=== PATIENT | female | born 1940 | race Caucasian/White ===

== ENCOUNTER 2020-06-13 16:38 | Inpatient (IN) ==
[2020-06-13] MEDS ORDERED: NS 0.9% 1000 ml BAG 1,000 ML IV ONE (18:49)
[2020-06-13 18:56] LABS: ABS Basophils 0.1 10^3/ul (0-0.2); ABS Eosinophils 0.1 10^3/ul (0-0.6); ABS Lymphocytes 0.9 10^3/ul (1.0-4.8); ABS Monocytes 0.6 10^3/ul (0-0.8); ABS Neutrophils 6.4 10^3/ul (1.5-7.7); Hematocrit 40 % (35-47); Hemoglobin 13.5 g/dL (12.0-16.0); Lymphocyte % 11.7 %; Mean Corpuscular HGB Conc 34 g/dL (31-36); Mean Corpuscular Hemoglobin 32 pg (27-31); Mean Corpuscular Volume 94 fL (80-97); Mean Platelet Volume 8.5 fL (7.4-10.4); Platelet Count 298 10^3/uL (150-450); Red Blood Count 4.22 10^6 /uL (3.70-4.87); Red Cell Distribution Width 12 % (10-15)
[2020-06-13] MEDS ORDERED: Diltiazem IV push/loading dose 5 MG/ML 5 ML vial (25 mg) IV SLOW PU ONE (19:08)
[2020-06-13 19:15] LABS: Albumin 4.2 g/dL (3.2-5.2); Albumin/Globulin Ratio 1.1 (1-3); BUN/Creatinine Ratio 15.8 (8-20); C Reactive Protein 126.54 mg/L (<8.01); Calcium 9.6 mg/dL (8.6-10.3); EGFR African American 68.8 (>60); EGFR Non-African American 56.9 (>60); Globulin 3.7 g/dL (2-4); Potassium 4.3 mmol/L (3.5-5.0); Total Bilirubin 0.4 mg/dL (0.2-1.0); Total Protein 7.9 g/dL (6.4-8.9)
[2020-06-13] MEDS ORDERED: Azithromycin IV 500 MG in NS 0.9% 250 ml 250 ML IVPB ONE (19:48)
[2020-06-13] MEDS ORDERED: cefTRIAXone 1 gm/50 mL NS BAG 1 GM/50 ML BAG IV ONE (19:48)
[2020-06-13] MEDS ORDERED: NS 0.9% 250 ml 250 ML ONE (20:07)
[2020-06-13] MEDS ORDERED: Vancomycin 1,500 MG in NS 0.9% 250 ml 250 ML IVPB ONE (20:15)
[2020-06-13 20:21] LABS: Magnesium 2.5 mg/dL (1.9-2.7)
[2020-06-13] MEDS ORDERED: Iodixanol (CONTRAST) 320 MG/ML 100 ML SDV IV ONE (21:18)
[2020-06-13] MEDS ORDERED: Enoxaparin 80 MG/0.8 ML SYR SUBCUT SCH (23:00)
[2020-06-14 04:38] LABS: ABS Eosinophils 0.1 10^3/ul (0-0.6); ABS Lymphocytes 0.9 10^3/ul (1.0-4.8); ABS Monocytes 0.5 10^3/ul (0-0.8); ABS Neutrophils 5.5 10^3/ul (1.5-7.7); Eosinophil % 1.1 %; Hematocrit 35 % (35-47); Hemoglobin 11.9 g/dL (12.0-16.0); Lymphocyte % 12.5 %; Mean Corpuscular HGB Conc 34 g/dL (31-36); Mean Corpuscular Hemoglobin 32 pg (27-31); Mean Corpuscular Volume 95 fL (80-97); Mean Platelet Volume 9.2 fL (7.4-10.4); Platelet Count 260 10^3/uL (150-450); Red Cell Distribution Width 13 % (10-15); White Blood Count 6.9 10^3/uL (3.5-10.8)
[2020-06-14 04:49] LABS: BUN/Creatinine Ratio 17.1 (8-20); Calcium 8.7 mg/dL (8.6-10.3); EGFR African American 89.1 (>60); EGFR Non-African American 73.6 (>60); Potassium 4.2 mmol/L (3.5-5.0)
[2020-06-14 16:40] LABS: Ferritin 357.9 ng/mL (11-307)
[2020-06-15 08:28] LABS: ABS Basophils 0.1 10^3/ul (0-0.2); ABS Eosinophils 0.1 10^3/ul (0-0.6); ABS Lymphocytes 0.9 10^3/ul (1.0-4.8); ABS Monocytes 0.5 10^3/ul (0-0.8); ABS Neutrophils 6.8 10^3/ul (1.5-7.7); Hematocrit 38 % (35-47); Hemoglobin 12.7 g/dL (12.0-16.0); Lymphocyte % 10.2 %; Mean Corpuscular HGB Conc 34 g/dL (31-36); Mean Corpuscular Hemoglobin 32 pg (27-31); Mean Corpuscular Volume 94 fL (80-97); Platelet Count 308 10^3/uL (150-450); Red Blood Count 4.01 10^6 /uL (3.70-4.87); Red Cell Distribution Width 12 % (10-15); White Blood Count 8.3 10^3/uL (3.5-10.8)
[2020-06-15 08:46] LABS: Albumin 3.8 g/dL (3.2-5.2); Albumin/Globulin Ratio 1.2 (1-3); BUN/Creatinine Ratio 19.5 (8-20); EGFR African American 81.6 (>60); EGFR Non-African American 67.4 (>60); Globulin 3.2 g/dL (2-4); Potassium 4.3 mmol/L (3.5-5.0); Total Bilirubin 0.4 mg/dL (0.2-1.0)
[2020-06-15 08:50] LABS: INR 1.13 (0.82-1.09)
[2020-06-15 14:15] LABS: Body Fluid Source Pleural Fluid
[2020-06-15 14:38] LABS: EGFR African American 61.3 (>60); EGFR Non-African American 50.7 (>60)
[2020-06-15 15:55] LABS: Body Fluid Mono 34 %
[2020-06-16 09:34] LABS: Hematocrit 38 % (35-47); Hemoglobin 12.6 g/dL (12.0-16.0); Mean Corpuscular HGB Conc 33 g/dL (31-36); Mean Corpuscular Hemoglobin 31 pg (27-31); Mean Corpuscular Volume 95 fL (80-97); Mean Platelet Volume 8.9 fL (7.4-10.4); Platelet Count 318 10^3/uL (150-450); Red Blood Count 4.04 10^6 /uL (3.70-4.87); Red Cell Distribution Width 13 % (10-15); White Blood Count 7.1 10^3/uL (3.5-10.8)
[2020-06-16 09:48] LABS: BUN/Creatinine Ratio 21.4 (8-20); Calcium 9.1 mg/dL (8.6-10.3); EGFR African American 79.3 (>60); EGFR Non-African American 65.6 (>60); Potassium 4.1 mmol/L (3.5-5.0)
[2020-06-16] MEDS ORDERED: Metoprolol Tartrate 5 mg VIAL 5 ml VIAL (1 mg/ml) IV PRN (15:59)
[2020-06-16 19:48] VITALS: BP 132/63
[2020-06-18 14:21] LABS: Fluid Type, Protein, Total PLEURAL EFFUSION
[2020-06-18 14:34] LABS: Fluid Type, Glucose PLEURAL EFFUSION; Glucose, BF 136 mg/dL
[2020-06-18 15:19] LABS: Lactate Dehydrogenase, BF 150 U/L
== END 2020-06-16 17:20 | disposition home or self-care (01) | DRG 186 ==
LOC: ED 16:38 → MEDTELE 22:44 → MED 06-14 14:34
PROVIDERS: ADMIT Internal Medicine; ATTEND Internal Medicine